=== PATIENT | female | born 1945 | race African-American/Black ===

== ENCOUNTER 2016-11-18 16:06 | Emergency (ER) | payer SELFPAY ==
--- NOTE | 2016-11-21 07:42 | ER ---
ADMIT: 11/18/2016 RM/LOC: ER [facility] MR#: [id number] [facility] [address] [place] [id number] GEOVANNA MARIE , Emergency Room Report SEX: F AGE: 71 : 1945 DATE: 11/18/2016 TIME: 1606 hours. Please refer to my T-sheet for complete H and P. HISTORY OF PRESENT ILLNESS: Briefly, the patient is a 71-year-old, comes in. She tripped over a chair, fell, hurt her right shoulder and right chest. She wants to be evaluated. No loss of consciousness. No neck pain. No other complaints. PHYSICAL EXAMINATION: VITAL SIGNS: Vital signs here are stable. HEENT: Head is atraumatic. NECK: Soft, supple. No pain to palpation. No step-offs. LUNGS: Clear. HEART: Regular. CHEST WALL: She is tender on the right anterior axillary line. No crepitus. BACK: No thoracic or lumbar pain. ABDOMEN: Soft, nontender. EXTREMITIES: Her right shoulder has diffuse tenderness. No pain over the AC joint. No other complaints. EMERGENCY DEPARTMENT COURSE: Right shoulder x-ray and chest x-ray were negative. She was offered pain med, she refused. Gave her a right arm sling, she was ready for discharge. ASSESSMENT: 1. Right shoulder strain. 2. Chest wall contusion status post fall. PLAN: Rest. Ice. Tylenol and Motrin. Follow up Dr. Perez this week to recheck. Return if worse. Keny Blackburn MD/ leon JOB #: [id number] CC: Gabriel Zacarias MD, Attending Physician
== END 2016-11-18 17:40 | disposition home or self-care (01) ==
LOC: ER 16:06
DX: S46.911A Strain of unspecified muscle, fascia and tendon at shoulder and upper arm level, right arm, initial encounter (principal); S20.211A Contusion of right front wall of thorax, initial encounter; I10 Essential (primary) hypertension; Z86.73 Personal history of transient ischemic attack (TIA), and cerebral infarction without residual deficits; Z88.0 Allergy status to penicillin; Z79.899 Other long term (current) drug therapy; W18.09XA Striking against other object with subsequent fall, initial encounter; Y92.009 Unspecified place in unspecified non-institutional (private) residence as the place of occurrence of the external cause